=== PATIENT | female | born 1945 | race Caucasian/White ===

== ENCOUNTER 2022-09-02 12:51 | Inpatient (IN) | payer MEDICARE, BC ==
--- NOTE | 2022-09-02 13:34 | ED ---
SOB HPI - General Chief Complaint: Shortness of Breath Stated Complaint: Weakness Time Seen by Provider: 09/02/22 13:14 Source: patient, RN notes reviewed, old records reviewed Mode of arrival: ambulatory Limitations: no limitations - History of Present Illness Initial Comments: This is a pleasant well-appearing 77-year-old female that presents to the e mergency room with complaints of shortness of breath with exertion since August 06. Patient states was walking around at [place] and became very short of breath and diaphoretic lasting longer than 20 minutes. Did have some chest pain at that time. States that more frequently she has been shortness of breath whenever she tries to walk or do anything exertional. Has had 1 other episode of diaphoresis in the past month. States occasionally has some bilateral lower extremity swelling which is resolved at this time. No nausea vomiting. No fevers. Did see her primary care doctor and is scheduled to see a [employer]. She believes that her blood glucose levels are high which is causing her symptoms. She is not a diabetic. She does take thyroid medication for hypothyroidism and a baby aspirin a day. MD Complaint: shortness of breath -: month(s) (1) Severity scale (1-10): 0 Associated Symptoms: diaphoresis, other (weakness, short of breath with exertion, occasional leg swelling) Treatments Prior to Arrival: none - Related Data Home Medications Medication Instructions Recorded Confirmed Aspirin EC [Ecotrin Low Dose] 81 mg PO DAILY 09/02/22 09/02/22 Levothyroxine Sodium [Synthroid] 75 mcg PO HS 09/02/22 09/02/22 Multivitamins, Thera [Multivitamin 1 tab PO DAILY 09/02/22 09/02/22 (formulary)] Vitamin E (Dl,Tocopheryl Acet) 400 unit PO DAILY 09/02/22 09/02/22 [Vitamin E (400 Iu = 180 mg)] Allergies Allergy/AdvReac Type Severity Reaction Status Date / Time No Known Allergies Allergy Verified 09/02/22 14:20 Review of Systems ROS Statement: Those systems with pertinent positive or pertinent negative responses have been documented in the HPI. ROS Other: All systems not noted in ROS Statement are negative. Past Medical History Past Medical History: Thyroid Disorder History of Any Multi-Drug Resistant Organisms: None Reported Past Surgical History: No Surgical Hx Reported Past Psychological History: No Psychological Hx Reported Smoking Status: Never smoker Past Alcohol Use History: None Reported Past Drug Use History: None Reported General Exam Limitations: no limitations General appearance: alert, in no apparent distress Head exam: Present: atraumatic Eye exam: Present: normal appearance. Absent: scleral icterus, conjunctival injection, periorbital swelling, periorbital tenderness Neck exam: Present: full ROM. Absent: tenderness, meningismus Respiratory exam: Present: normal lung sounds bilaterally. Absent: respiratory distress, accessory muscle use Cardiovascular Exam: Present: regular rate GI/Abdominal exam: Present: soft. Absent: distended, tenderness, rigid Rectal exam: Present: normal rectal tone. Absent: bloody stool, mass, tendernes s Extremities exam: Present: full ROM, normal capillary refill. Absent: te nderness, pedal edema Back exam: Absent: tenderness Neurological exam: Present: alert, oriented X3 Psychiatric exam: Present: normal affect, normal mood Skin exam: Present: warm, dry, normal color. Absent: cyanosis, diaphoretic, petechiae, pallor Course Vital Signs 09/02/22 09/02/22 09/02/22 13:11 13:17 14:17 Temperature 98 F Pulse Rate 80 68 81 Respiratory 16 16 16 Rate Blood Pressure 146/76 136/78 158/81 O2 Sat by Pulse 99 98 98 Oximetry Medical Decision Making - Medical Decision Making Chest x-ray interpreted by me shows no evidence of focal consolidation. Trachea is midline. Cardiac silhouette within normal size. Radiologist interpretation no evidence for acute pulmonary disease. EKG shows sinus rhythm with a ventricular rate of 78, [place] interval 0.196, QRS 0.108, QTc 0.416, no old EKG to compare Hemoglobin 5.2 hematocrit 20.2. Electrolytes are unremarkable. Last hemoglobin 11/16/2020 at 12.9 Patient is hemodynamically stable. Rectal exam negative for gross blood, sent for occult and negative. Abdomen is soft and nontender. Patient denies any melena or hematochezia. Patient has never had a colonoscopy states that her father and sister both had colon cancer. Patient states that she does take an aspirin a day She will be admitted to the hospital with symptomatic anemia. Two units of packed RBCs ordered. Patient is agreeable to this plan of care. I did speak with Dr. Hernandez who is agreeable to admission,. consult to Dr. Slime gao. Case discussed with Dr. Wasserman Was pt. sent in by a medical professional or institution (, [facility], [employer], urgent care, hospital, or long-term...) When possible be specific @ -[No] Did you speak to anyone other than the patient for history (EMS, parent, family, police, friend...)? What history was obtained from this source @ -[No] Did you review nursing and triage notes (agree or disagree)? Why? @ -[I reviewed and agree with nursing and triage notes] Were old charts reviewed (outside hosp., previous admission, EMS record, old EKG, old radiological studies, urgent care reports/EKG's, long-term records)? Report findings @ - Differential Diagnosis (chest pain, altered mental status, abdominal pain women, abdominal pain men, vaginal bleeding, weakness, fever, dyspnea, syncope, headache, dizziness, GI bleed, back pain, seizure, CVA, palpatations, mental health, musculoskeletal)? @ Differential Dyspnea: Coronary syndrome, arrhythmia, tamponade, asthma, COPD, pulmonary embolism, pneumonia, pneumothorax, pulmonary effusion, anaphylaxis, diabetic ketoacidosis, flailed chest, pulmonary contusion, diaphragmatic rupture, anemia, neuromuscular, this is not meant to be an all-inclusive list. EKG interpreted by me (3pts min.). @ -[As above] X-rays interpreted by me (1pt min.). @ -Yes as above CT interpreted by me (1pt min.). @ -[None done] U/S interpreted by me (1pt. min.). @ -[None done] What testing was considered but not performed or refused? (CT, X-rays, U/S, labs)? Why? @ -[None] What meds were considered but not given or refused? Why? @ -[None] Did you discuss the management of the patient with other professionals (professionals i.e. , [facility], [employer], lab, RT, psych nurse, social services coordinator, statement clerks supervisor, teacher, community relations officer, caser in)? Give summary @ -[No] Was smoking cessation discussed for >3mins.? @ -[No] Was critical care preformed (if so, how long)? @ -[No] Were there social determinants of health that impacted care today? How? (Homelessness, low income, unemployed, alcoholism, drug addiction, transportation, low edu. Level, literacy, decrease access to med. care, [facility], rehab)? @ -[No] Was there de-escalation of care discussed even if they declined (Discuss DNR or withdrawal of care, Hospice)? DNR status @ -[No] What co-morbidities impacted this encounter? (DM, HTN, Smoking, COPD, CAD, Cancer, CVA, ARF, Chemo, Hep., AIDS, mental health diagnosis, sleep apnea, morbid obesity)? @ -[None] Was patient admitted / discharged? Hospital course, mention meds given and route, prescriptions, significant lab abnormalities, going to OR and other pertinent info. @ -Admitted Undiagnosed new problem with uncertain prognosis? @ -Symptomatic anemia requiring blood transfusion Drug Therapy requiring intensive monitoring for toxicity (Heparin, Nitro, Insulin, Cardizem)? @ -[No] Were any procedures done? @ -[No] Diagnosis/symptom? @ -Symptomatic anemia Acute, or Chronic, or Acute on Chronic? @ -Acute Uncomplicated (without systemic symptoms) or Complicated (systemic symptoms)? @ -Complicated Side effects of treatment? @ -[No] Exacerbation, Progression, or Severe Exacerbation? @ -[No] Poses a threat to life or bodily function? How? (Chest pain, [place], [place], pneumonia, PE, COPD, DKA, ARF, appy, cholecystitis, CVA, Diverticulitis, Homicidal, Suicidal, threat to staff... and all critical care pts) @ -yes, Symptomatic anemia requiring blood transfusion - Lab Data Result diagrams: 09/02/22 13:28 09/02/22 13:28 Lab Results 09/02/22 09/02/22 09/02/22 Range/Units 13:28 13:28 13:28 WBC 9.1 (3.8-10.6) k/uL RBC 3.37 L (3.80-5.40) m/uL Hgb 5.2 L* (11.4-16.0) gm/dL Hct 20.2 L (34.0-46.0) % MCV 60.0 L (80.0-100.0) fL MCH 15.4 L (25.0-35.0) pg MCHC 25.7 L (31.0-37.0) g/dL RDW 19.2 H (11.5-15.5) % Plt Count 605 H (150-450) k/uL MPV 8.5 Neutrophils % (Manual) 72 % Lymphocytes % (Manual) 21 % Monocytes % (Manual) 4 % Eosinophils % (Manual) 2 % Basophils % (Manual) 1 % Neutrophils # (Manual) 6.55 (1.3-7.7) k/uL Lymphocytes # (Manual) 1.91 (1.0-4.8) k/uL Monocytes # (Manual) 0.36 (0-1.0) k/uL Eosinophils # (Manual) 0.18 (0-0.7) k/uL Basophils # (Manual) 0.09 (0-0.2) k/uL Nucleated RBCs 0 (0-0) /100 WBC Manual Slide Review Performed Polychromasia Present Hypochromasia Marked Hypochromasia (manual) Present Poikilocytosis Moderate Poikilocytosis (manual Present Anisocytosis Slight Anisocytosis (manual) Present Microcytosis Marked Target Cells Present Ovalocytes Present Fragmented RBCs Present PT 10.1 (9.0-12.0) sec INR 0.9 (<1.2) APTT 22.0 (22.0-30.0) sec Sodium 134 L (137-145) mmol/L Potassium 4.7 (3.5-5.1) mmol/L Chloride 102 (98-107) mmol/L Carbon Dioxide 28 (22-30) mmol/L Anion Gap 4 mmol/L BUN 12 (7-17) mg/dL Creatinine 0.60 (0.52-1.04) mg/dL Est GFR (CKD-EPI)AfAm >90 (>60 ml/min/1.73 sqM) Est GFR (CKD-EPI)NonAf 89 (>60 ml/min/1.73 sqM) Glucose 86 (74-99) mg/dL Calcium 8.8 (8.4-10.2) mg/dL Magnesium 2.5 H (1.6-2.3) mg/dL Total Bilirubin 0.3 (0.2-1.3) mg/dL AST 39 H (14-36) U/L ALT 62 H (4-34) U/L Alkaline Phosphatase 111 (38-126) U/L Troponin I (0.000-0.034) ng/mL NT-Pro-B Natriuret Pep pg/mL Total Protein 6.3 (6.3-8.2) g/dL Albumin 3.6 (3.5-5.0) g/dL TSH 1.420 (0.465-4.680) mIU/L Stool Occult Blood (Negative) Blood Type Recheck Bld Type Recheck Status Spec Expiration Date 09/02/22 09/02/22 09/02/22 Range/Units 13:28 13:28 14:15 WBC (3.8-10.6) k/uL RBC (3.80-5.40) m/uL Hgb (11.4-16.0) gm/dL Hct (34.0-46.0) % MCV (80.0-100.0) fL MCH (25.0-35.0) pg MCHC (31.0-37.0) g/dL RDW (11.5-15.5) % Plt Count (150-450) k/uL MPV Neutrophils % (Manual) % Lymphocytes % (Manual) % Monocytes % (Manual) % Eosinophils % (Manual) % Basophils % (Manual) % Neutrophils # (Manual) (1.3-7.7) k/uL Lymphocytes # (Manual) (1.0-4.8) k/uL Monocytes # (Manual) (0-1.0) k/uL Eosinophils # (Manual) (0-0.7) k/uL Basophils # (Manual) (0-0.2) k/uL Nucleated RBCs (0-0) /100 WBC Manual Slide Review Polychromasia Hypochromasia Hypochromasia (manual) Poikilocytosis Poikilocytosis (manual Anisocytosis Anisocytosis (manual) Microcytosis Target Cells Ovalocytes Fragmented RBCs PT (9.0-12.0) sec INR (<1.2) APTT (22.0-30.0) sec Sodium (137-145) mmol/L Potassium (3.5-5.1) mmol/L Chloride (98-107) mmol/L Carbon Dioxide (22-30) mmol/L Anion Gap mmol/L BUN (7-17) mg/dL Creatinine (0.52-1.04) mg/dL Est GFR (CKD-EPI)AfAm (>60 ml/min/1.73 sqM) Est GFR (CKD-EPI)NonAf (>60 ml/min/1.73 sqM) Glucose (74-99) mg/dL Calcium (8.4-10.2) mg/dL Magnesium (1.6-2.3) mg/dL Total Bilirubin (0.2-1.3) mg/dL AST (14-36) U/L ALT (4-34) U/L Alkaline Phosphatase (38-126) U/L Troponin I <0.012 (0.000-0.034) ng/mL NT-Pro-B Natriuret Pep 132 pg/mL Total Protein (6.3-8.2) g/dL Albumin (3.5-5.0) g/dL TSH (0.465-4.680) mIU/L Stool Occult Blood Negative (Negative) Blood Type Recheck Bld Type Recheck Status Spec Expiration Date 09/02/22 Range/Units 14:18 WBC (3.8-10.6) k/uL RBC (3.80-5.40) m/uL Hgb (11.4-16.0) gm/dL Hct (34.0-46.0) % MCV (80.0-100.0) fL MCH (25.0-35.0) pg MCHC (31.0-37.0) g/dL RDW (11.5-15.5) % Plt Count (150-450) k/uL MPV Neutrophils % (Manual) % Lymphocytes % (Manual) % Monocytes % (Manual) % Eosinophils % (Manual) % Basophils % (Manual) % Neutrophils # (Manual) (1.3-7.7) k/uL Lymphocytes # (Manual) (1.0-4.8) k/uL Monocytes # (Manual) (0-1.0) k/uL Eosinophils # (Manual) (0-0.7) k/uL Basophils # (Manual) (0-0.2) k/uL Nucleated RBCs (0-0) /100 WBC Manual Slide Review Polychromasia Hypochromasia Hypochromasia (manual) Poikilocytosis Poikilocytosis (manual Anisocytosis Anisocytosis (manual) Microcytosis Target Cells Ovalocytes Fragmented RBCs PT (9.0-12.0) sec INR (<1.2) APTT (22.0-30.0) sec Sodium (137-145) mmol/L Potassium (3.5-5.1) mmol/L Chloride (98-107) mmol/L Carbon Dioxide (22-30) mmol/L Anion Gap mmol/L BUN (7-17) mg/dL Creatinine (0.52-1.04) mg/dL Est GFR (CKD-EPI)AfAm (>60 ml/min/1.73 sqM) Est GFR (CKD-EPI)NonAf (>60 ml/min/1.73 sqM) Glucose (74-99) mg/dL Calcium (8.4-10.2) mg/dL Magnesium (1.6-2.3) mg/dL Total Bilirubin (0.2-1.3) mg/dL AST (14-36) U/L ALT (4-34) U/L Alkaline Phosphatase (38-126) U/L Troponin I (0.000-0.034) ng/mL NT-Pro-B Natriuret Pep pg/mL Total Protein (6.3-8.2) g/dL Albumin (3.5-5.0) g/dL TSH (0.465-4.680) mIU/L Stool Occult Blood (Negative) Blood Type Recheck No Previous Record Bld Type Recheck Status CABO Indicated Spec Expiration Date 09/05/2022 - 2317 Critical Care Time Critical Care Time: Yes Total Critical Care Time: 32 Disposition Clinical Impression: Symptomatic anemia Disposition: ADMITTED IP TO THIS [facility] Decision Date: 09/02/22 Decision Time: 14:30
[2022-09-02 13:52] LABS: Anisocytosis Slight; HCT 20.2 % (34.0-46.0); Hypochromasia Marked; MCH 15.4 pg (25.0-35.0); MCHC 25.7 g/dL (31.0-37.0); Mean Platelet Volume 8.5; Microcytosis Marked; Platelet Count 605 k/uL (150-450); Poikilocytosis Moderate; RBC 3.37 m/uL (3.80-5.40); RDW 19.2 % (11.5-15.5); WBC 9.1 k/uL (3.8-10.6)
[2022-09-02 14:02] LABS: INR 0.9 (<1.2); Prothrombin Time 10.1 sec (9.0-12.0)
[2022-09-02 14:04] LABS: ALT 62 U/L (4-34); AST 39 U/L (14-36); African American GFR (CKD) >90 (>60 ml/min/1.73 sqM); Albumin 3.6 g/dL (3.5-5.0); Alkaline Phosphatase 111 U/L (38-126); Anion Gap 4 mmol/L; Blood Urea Nitrogen 12 mg/dL (7-17); Calcium 8.8 mg/dL (8.4-10.2); Carbon Dioxide 28 mmol/L (22-30); Chloride 102 mmol/L (98-107); Glucose 86 mg/dL (74-99); Magnesium 2.5 mg/dL (1.6-2.3); Non-African American GFR(CKD) 89 (>60 ml/min/1.73 sqM); Potassium 4.7 mmol/L (3.5-5.1); Sodium 134 mmol/L (137-145); Total Bilirubin 0.3 mg/dL (0.2-1.3); Total Protein 6.3 g/dL (6.3-8.2)
--- NOTE | 2022-09-02 14:14 | XR ---
EXAMINATION TYPE: XR chest 2V DATE OF EXAM: 09/02/2022 COMPARISON: NONE HISTORY: Shortness of breath TECHNIQUE: Frontal and lateral views of the chest are obtained. FINDINGS: Scattered senescent parenchymal changes noted. Hyperinflation compatible with COPD. No evidence for infiltrate. No evidence for atelectasis. There is a moderate fixed hiatal hernia note d. Heart size is stable. Mediastinal structures are stable and grossly unremarkable. No evidence for hilar prominence. Degenerative changes dorsal spine. IMPRESSION: 1. No evidence for acute pulmonary disease.
[2022-09-02] MEDS ORDERED: NALOXONE 0.4 MG/ML 1 ML VIAL IV PRN (15:06)
[2022-09-02 15:50] LABS: Anisocytosis (M) Present; Basophils # (M) 0.09 k/uL (0-0.2); Eosinophils # (M) 0.18 k/uL (0-0.7); Hypochromasia (M) Present; Lymphocytes # (M) 1.91 k/uL (1.0-4.8); Monocytes # (M) 0.36 k/uL (0-1.0); Neutrophils # (M) 6.55 k/uL (1.3-7.7); Neutrophils % (M) 72 %; Nucleated Red Blood Cells 0 /100 WBC (0-0); Poikilocytosis (M) Present; Polychromasia Present; Target Cells Present; Total Cells Counted 100
[2022-09-02 15:51] LABS: Ovalocytes Present; RBC Fragments Present
[2022-09-02] MEDS: SODIUM CHLORIDE 0.9% 1,000 ML IV SCH (16:11)
[2022-09-02] MEDS: PANTOPRAZOLE 40 MG/10 ML VIAL IV SCH (16:11)
[2022-09-02] MEDS: LEVOTHYROXINE 75 MCG TAB PO SCH (20:56)
--- NOTE | 2022-09-03 02:19 | P.HPIM ---
History of Present Illness H&P Date: 09/02/22 Chief Complaint: Shortness of breath Patient is a 77-year-old female with a known history of hypothyroidism presents to ER with complaints of shortness of breath and exertional dyspnea. Patient has been having symptoms since August 06. Patient states that she was at [facility] and was walking around but suddenly became short of breath and diaphoretic lasting longer than 30 minutes. Patient did have some chest tightness/discomfort at the time. No radiation of the pain. Patient states that recently she has been having more short of breath whenever she tries to walk and do any exertion. Patient was also noted to have bilateral lower extremity evaluation minimal at this time. No complaints of nausea or vomiting. No complaints of abdominal pain. Patient was seen by her primary care physician and is scheduled to see cardiology as an outpatient. On admission chest x-ray showed no evidence for acute pulmonary disease. EKG showed sinus rhythm with left anterior fascicular block. Laboratory data showed WBC 9.1 hemoglobin 5.2 and platelets 605 and MCV 60.0 Iron profile showed iron level 10 TIBC 501 and percentage saturation is 2.0 proBNP 132 and troponin x1 negative AST 39 ALT 62 and alk phos 111 Fecal occult blood was negative in the ER. Review of Systems Constitutional: Patient denies any fever or chills . no Generalized weakness. Abdomen: Patient denied any nausea or vomiting or abd. pain Cardiovascular: Patient denies any chest pain. Shortness of breath and exertional dyspnea. No orthopnea no PND. Mild leg swelling. Respiratory: patient denied any cough . no sputum production. Positive for shortness of breath Neurologic: Patient denied any numbness or tingling headache. Musculoskeletal: Patient denies any complaints of joint swelling or deformity. Skin: Negative Psychiatric: Negative Endocrine: No heat or cold intolerance. No recent weight gain. Genitourinary: No dysuria or hematuria. 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 Past Anesthesia/Blood Transfusion Reactions: No Reported Reaction Past Psychological History: No Psychological Hx Reported Smoking Status: Never smoker Past Alcohol Use History: None Reported Past Drug Use History: None Reported - Past Family History Mother Family Medical History: Coronary Artery Disease (CAD), Diabetes Mellitus, Renal Disease, Vascular Disorder Father Family Medical History: Cancer Additional Family Medical History / Comment(s): colon cancer Medications and Allergies Home Medications Medication Instructions Recorded Confirmed Type Aspirin EC [Ecotrin Low Dose] 81 mg PO DAILY 09/02/22 09/02/22 History Levothyroxine Sodium [Synthroid] 75 mcg PO HS 09/02/22 09/02/22 History Multivitamins, Thera [Multivitamin 1 tab PO DAILY 09/02/22 09/02/22 History (formulary)] Vitamin E (Dl,Tocopheryl Acet) 400 unit PO DAILY 09/02/22 09/02/22 History [Vitamin E (400 Iu = 180 mg)] Allergies Allergy/AdvReac Type Severity Reaction Status Date / Time No Known Allergies Allergy Verified 09/02/22 14:20 Physical Exam Vitals: Vital Signs Temp Pulse Pulse Resp BP BP Pulse Ox 09/02/22 18:32 98.1 F 85 16 148/67 98 09/02/22 18:12 97.9 F 83 16 142/65 97 09/02/22 18:02 97.4 F L 83 17 137/65 96 09/02/22 16:52 96.4 F L 82 16 160/69 09/02/22 16:18 86 16 168/75 98 09/02/22 16:00 80 20 168/78 97 09/02/22 15:50 80 150/72 98 09/02/22 15:40 79 150/72 99 09/02/22 15:30 76 139/76 96 09/02/22 15:20 80 139/76 98 09/02/22 15:10 79 139/76 97 09/02/22 15:00 78 20 150/73 98 09/02/22 14:50 80 150/73 96 09/02/22 14:40 80 150/73 97 09/02/22 14:30 84 158/81 98 09/02/22 14:20 81 146/75 97 09/02/22 14:17 81 16 158/81 98 09/02/22 14:10 78 146/75 99 09/02/22 14:00 146/75 09/02/22 13:50 79 146/75 96 09/02/22 13:40 78 146/75 98 09/02/22 13:30 81 146/75 98 09/02/22 13:20 80 146/75 97 09/02/22 13:17 68 16 136/78 98 09/02/22 13:14 146/75 97 09/02/22 13:11 98 F 80 16 146/76 99 Intake and Output 09/02/22 09/02/22 09/02/22 06:59 14:59 22:59 Intake Total 0 Balance 0 Intake: Blood Product 0 Unit 0 Other: Weight 68.039 kg 68.039 kg PHYSICAL EXAMINATION: Patient is lying in the bed comfortably, no acute distress, awake alert and oriented.. HEENT: Normocephalic. Neck is supple. Pupils reactive. Nostrils clear. Oral cavity is moist. Neck reveals no JVD, carotid bruits, or thyromegaly. CHEST EXAMINATION: Trachea is central. Symmetrical expansion. Lung carver clear to auscultation and percussion. CARDIAC: Normal S1, S2 with no gallops. No murmurs ABDOMEN: Soft. Bowel sounds present. Nontender. No organomegaly. No abdominal bruits. Extremities: reveal no edema. No clubbing or cyanosis Neurologically awake, alert, oriented x3 with well-coordinated movements. No focal deficits noted Skin: No rash or skin lesions. Psychiatric: Coperative. Nonsuicidal, Musculoskeletal: No joint swelling or deformity. Normal range of motion. Results CBC & Chem 7: 09/03/22 10:47 09/03/22 10:47 Labs: Abnormal Lab Results - Last 24 Hours (Table) 09/02/22 09/02/22 09/02/22 Range/Units 13:28 13:28 14:18 RBC 3.37 L (3.80-5.40) m/uL Hgb 5.2 L* (11.4-16.0) gm/dL Hct 20.2 L (34.0-46.0) % MCV 60.0 L (80.0-100.0) fL MCH 15.4 L (25.0-35.0) pg MCHC 25.7 L (31.0-37.0) g/dL RDW 19.2 H (11.5-15.5) % Plt Count 605 H (150-450) k/uL Sodium 134 L (137-145) mmol/L Magnesium 2.5 H (1.6-2.3) mg/dL AST 39 H (14-36) U/L ALT 62 H (4-34) U/L Crossmatch See Detail Thrombosis Risk Factor Assmnt - DVT/VTE Prophylaxis DVT/VTE Prophylaxis: Mechanical Prophylaxis ordered - Choose All That Apply Any of the Below Risk Factors Present?: Yes Each Factor Represents 1 point: Obesity (BMI >25) Each Risk Factor Represents 3 Points: Age 75 years or older Thrombosis Risk Factor Assessment Total Risk Factor Score: 4 Thrombosis Risk Factor Assessment Level: Moderate Risk Assessment and Plan Assessment: Shortness of breath and exertional dyspnea Symptomatic anemia with hemoglobin level 5.2 on admission Microcytic iron deficiency anemia Hypothyroidism DVT prophylaxis with SCDs Plan: Patient will be continued on IV hydration with normal saline and continue with IV Protonix 40 mg daily. Transfusion with 1 unit of PRBC was ordered. Follow-up B12 folate level and iron profile. General surgery was consulted for possible EGD. Continue to monitor H&H and follow-up closely. Patient denies any complaints of chest pain at this time. Time with Patient: Greater than 30
[2022-09-03] MEDS: SODIUM CHLORIDE 0.9% 1,000 ML IV SCH ×2 (04:17→20:10)
[2022-09-03] MEDS: PANTOPRAZOLE 40 MG/10 ML VIAL IV SCH (08:01)
[2022-09-03] MEDS ORDERED: LIDOCAINE 2% INJ 20 MG/ML (2 ML VIAL) ONE (10:52)
[2022-09-03] MEDS ORDERED: IV FLUID CONTINUATION 1,000 ML IV ONE (10:52)
[2022-09-03] MEDS ORDERED: PROPOFOL 10 MG/ML 20 ML VIAL IV ONE (10:52)
--- NOTE | 2022-09-03 10:59 | P.GSCN ---
History of Present Illness Consult date: 09/03/22 History of present illness: CHIEF COMPLAINT: Shortness of breath HISTORY OF PRESENT ILLNESS: This is a 77-year-old female who presented to the emergency room with shortness of breath since August 06. She also complains of being fatigued and having dizziness. She's found to have a hemoglobin of 5.2 on admission. Her iron levels low at 10. She denies any blood in her stools or black stools. She does have a family history of colon cancer and in both her father and sister. Patient has never had a colonoscopy. Patient was never had EGD. She denies any nausea or vomiting. She does report some epigastric discomfort. She did receive 2 units of blood for the hemoglobin of 5.2. She denies being on any blood thinners. PAST MEDICAL HISTORY: See below PAST SURGICAL HISTORY: See below MEDICATIONS: See below ALLERGIES: See below SOCIAL HISTORY: No illicit drug use. REVIEW OF SYSTEMS: CONSTITUTIONAL: Denies fever or chills. HEENT: Denies blurred vision, vision changes, or eye pain. Denies hemoptysis CARDIOVASCULAR: Denies chest pain or pressure. RESPIRATORY: No shortness of breath. GASTROINTESTINAL: See HPI for pertinent findings HEMATOLOGIC: Denies bleeding disorders. GENITOURINARY: Denies any blood in urine or increased urinary frequency. SKIN: Denies pruitis. Denies rash. PHYSICAL EXAM: VITAL SIGNS: Reviewed GENERAL: Well-developed in no acute distress. HEENT: No sclera icterus. Extraocular movements grossly intact. Moist buccal mucosa. Head is atraumatic, normocephalic. No nasal drainage. ABDOMEN: Soft. Nondistended. Mild epigastric discomfort with palpation NEUROLOGIC: Alert and oriented. Cranial nerves II through XII grossly intact. LABORATORY DATA: WBC is 9.1 hgb 5.2 platelets 605 INR 0.9 Sodium 134 potassium 4.7 creatinine 0.60 Total iron 10 Stool for occult blood negative Labs from today pending IMAGING: ASSESSMENT: 1. Symptomatic anemia with evidence of iron deficiency 2. Family history of colon cancer PLAN: -Patient scheduled for EGD today with Dr. Palencia -Continue to monitor hemoglobin -Continue PPI -Continue supportive care Physician [employer] note has been reviewed by physician. Signing provider agrees with the documented findings, assessment, and plan of care. 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 Past Anesthesia/Blood Transfusion Reactions: No Reported Reaction Past Psychological History: No Psychological Hx Reported Smoking Status: Never smoker Past Alcohol Use History: None Reported Past Drug Use History: None Reported - Past Family History Mother Family Medical History: Coronary Artery Disease (CAD), Diabetes Mellitus, Renal Disease, Vascular Disorder Father Family Medical History: Cancer Additional Family Medical History / Comment(s): colon cancer Medications and Allergies Home Medications Medication Instructions Recorded Confirmed Type Aspirin EC [Ecotrin Low Dose] 81 mg PO DAILY 09/02/22 09/02/22 History Levothyroxine Sodium [Synthroid] 75 mcg PO HS 09/02/22 09/02/22 History Multivitamins, Thera [Multivitamin 1 tab PO DAILY 09/02/22 09/02/22 History (formulary)] Vitamin E (Dl,Tocopheryl Acet) 400 unit PO DAILY 09/02/22 09/02/22 History [Vitamin E (400 Iu = 180 mg)] Allergies Allergy/AdvReac Type Severity Reaction Status Date / Time No Known Allergies Allergy Verified 09/02/22 14:20 Surgical - Exam Vital Signs Temp Pulse Resp BP Pulse Ox 98 F 80 16 146/76 99 09/02/22 13:11 09/02/22 13:11 09/02/22 13:11 09/02/22 13:11 09/02/22 13:11 Results - Labs 09/02/22 13:28 09/02/22 13:28 Abnormal Lab Results - Last 24 Hours (Table) 09/02/22 09/02/22 09/02/22 Range/Units 13:28 13:28 13:28 RBC 3.37 L (3.80-5.40) m/uL Hgb 5.2 L* (11.4-16.0) gm/dL Hct 20.2 L (34.0-46.0) % MCV 60.0 L (80.0-100.0) fL MCH 15.4 L (25.0-35.0) pg MCHC 25.7 L (31.0-37.0) g/dL RDW 19.2 H (11.5-15.5) % Plt Count 605 H (150-450) k/uL Sodium 134 L (137-145) mmol/L Magnesium 2.5 H (1.6-2.3) mg/dL Iron 10 L (50-170) ug/dL TIBC 501 H (228-460) ug/dL % Saturation 2.00 L (12.00-45.00) Transferrin 358.0 H (204.0-354.0) mg/dL AST 39 H (14-36) U/L ALT 62 H (4-34) U/L Crossmatch 09/02/22 Range/Units 14:18 RBC (3.80-5.40) m/uL Hgb (11.4-16.0) gm/dL Hct (34.0-46.0) % MCV (80.0-100.0) fL MCH (25.0-35.0) pg MCHC (31.0-37.0) g/dL RDW (11.5-15.5) % Plt Count (150-450) k/uL Sodium (137-145) mmol/L Magnesium (1.6-2.3) mg/dL Iron (50-170) ug/dL TIBC (228-460) ug/dL % Saturation (12.00-45.00) Transferrin (204.0-354.0) mg/dL AST (14-36) U/L ALT (4-34) U/L Crossmatch See Detail Diabetes panel 09/02/22 Range/Units 13:28 Sodium 134 L (137-145) mmol/L Potassium 4.7 (3.5-5.1) mmol/L Chloride 102 (98-107) mmol/L Carbon Dioxide 28 (22-30) mmol/L BUN 12 (7-17) mg/dL Creatinine 0.60 (0.52-1.04) mg/dL Glucose 86 (74-99) mg/dL Calcium 8.8 (8.4-10.2) mg/dL AST 39 H (14-36) U/L ALT 62 H (4-34) U/L Alkaline Phosphatase 111 (38-126) U/L Total Protein 6.3 (6.3-8.2) g/dL Albumin 3.6 (3.5-5.0) g/dL Thyroid panel 09/02/22 Range/Units 13:28 TSH 1.420 (0.465-4.680) mIU/L Calcium panel 09/02/22 Range/Units 13:28 Calcium 8.8 (8.4-10.2) mg/dL Albumin 3.6 (3.5-5.0) g/dL Pituitary panel 09/02/22 Range/Units 13:28 Sodium 134 L (137-145) mmol/L Potassium 4.7 (3.5-5.1) mmol/L Chloride 102 (98-107) mmol/L Carbon Dioxide 28 (22-30) mmol/L BUN 12 (7-17) mg/dL Creatinine 0.60 (0.52-1.04) mg/dL Glucose 86 (74-99) mg/dL Calcium 8.8 (8.4-10.2) mg/dL TSH 1.420 (0.465-4.680) mIU/L Adrenal panel 09/02/22 Range/Units 13:28 Sodium 134 L (137-145) mmol/L Potassium 4.7 (3.5-5.1) mmol/L Chloride 102 (98-107) mmol/L Carbon Dioxide 28 (22-30) mmol/L BUN 12 (7-17) mg/dL Creatinine 0.60 (0.52-1.04) mg/dL Glucose 86 (74-99) mg/dL Calcium 8.8 (8.4-10.2) mg/dL Total Bilirubin 0.3 (0.2-1.3) mg/dL AST 39 H (14-36) U/L ALT 62 H (4-34) U/L Alkaline Phosphatase 111 (38-126) U/L Total Protein 6.3 (6.3-8.2) g/dL Albumin 3.6 (3.5-5.0) g/dL
--- NOTE | 2022-09-03 11:04 | P.OP ---
Date of Procedure: 09/03/22 Preoperative Diagnosis: Anemia GI bleed Postoperative Diagnosis: Antral gastritis Large paraesophageal hiatal hernia with one third of stomach and chest Antral gastritis Procedure(s) Performed: EGD Anesthesia: MAC Surgeon: Mika Palencia Pathology: other (Antrum, esophagus) Condition: stable Disposition: PACU Description of Procedure: The patient's placed on the endoscopy table in the lateral position. She received IV sedation. The gastroscope placed oropharynx passed in the esophagus into the stomach. Scope was then placed through the pylorus. The first and second portion of the duodenum appeared normal. Scope was then brought back the antrum this. Mildly inflamed. A biopsies performed. The scope was then retroflexed and the remainder the stomach was visualized. The patient had a large paraesophageal hernia. Approximately one third of the stomach was in the intrathoracic position. The GE junction was at 37 cm. The distal esophagus. Minimal inflamed and a biopsies performed. Proximal esophagus appeared normal. Scope withdrawn for patient. There was no evidence of active GI bleed. Presumed patient may have had microscopic bleeding related to her paraesophageal hernia.
[2022-09-03 11:42] LABS: Anisocytosis Moderate; HCT 26.8 % (34.0-46.0); HGB 8.1 gm/dL (11.4-16.0); Hypochromasia Marked; MCH 20.1 pg (25.0-35.0); MCHC 30.1 g/dL (31.0-37.0); Mean Platelet Volume 8.1; Microcytosis Marked; Platelet Count 551 k/uL (150-450); Poikilocytosis Marked; RBC 4.01 m/uL (3.80-5.40); RDW 22.7 % (11.5-15.5)
[2022-09-03 11:59] LABS: African American GFR (CKD) >90 (>60 ml/min/1.73 sqM); Anion Gap 5 mmol/L; Blood Urea Nitrogen 10 mg/dL (7-17); Calcium 8.9 mg/dL (8.4-10.2); Carbon Dioxide 27 mmol/L (22-30); Chloride 105 mmol/L (98-107); Glucose 85 mg/dL (74-99); Non-African American GFR(CKD) 80 (>60 ml/min/1.73 sqM); Potassium 4.5 mmol/L (3.5-5.1); Sodium 137 mmol/L (137-145)
[2022-09-03 12:00] LABS: MCV 66.9 fL (80.0-100.0)
[2022-09-03 13:59] LABS: Lymphocytes # (M) 1.28 k/uL (1.0-4.8); Monocytes # (M) 0.64 k/uL (0-1.0); Neutrophils # (M) 5.18 k/uL (1.3-7.7); Neutrophils % (M) 73 %; Nucleated Red Blood Cells 2 /100 WBC (0-0); Total Cells Counted 100; WBC 7.1 k/uL (3.8-10.6)
[2022-09-03] MEDS: LEVOTHYROXINE 75 MCG TAB PO SCH (20:12)
[2022-09-03 23:25] VITALS: RESP 18
[2022-09-04] MEDS: SODIUM CHLORIDE 0.9% 1,000 ML IV SCH (05:18)
[2022-09-04] MEDS ORDERED: SODIUM FERRIC GLUCONAT-SUCROSE 125 MG in SODIUM CHLORIDE 0.9% 100 ML IVPB SCH (09:00)
[2022-09-04] MEDS: PANTOPRAZOLE 40 MG/10 ML VIAL IV SCH (09:21)
[2022-09-04 09:40] LABS: Chloride 106 mmol/L (98-107)
[2022-09-04 09:41] LABS: AST 106 U/L (14-36); African American GFR (CKD) >90 (>60 ml/min/1.73 sqM); Anion Gap 7 mmol/L; Blood Urea Nitrogen 10 mg/dL (7-17); Calcium 9.2 mg/dL (8.4-10.2); Carbon Dioxide 23 mmol/L (22-30); Glucose 139 mg/dL (74-99); Non-African American GFR(CKD) 86 (>60 ml/min/1.73 sqM); Potassium 5.2 mmol/L (3.5-5.1); Sodium 136 mmol/L (137-145); Total Bilirubin 1.1 mg/dL (0.2-1.3); Total Protein 6.7 g/dL (6.3-8.2)
[2022-09-04 09:42] LABS: ALT 44 U/L (4-34); Alkaline Phosphatase 136 U/L (38-126)
[2022-09-04 10:02] LABS: Anisocytosis Moderate; HCT 29.6 % (34.0-46.0); HGB 8.4 gm/dL (11.4-16.0); Hypochromasia Marked; MCH 19.5 pg (25.0-35.0); MCHC 28.5 g/dL (31.0-37.0); MCV 68.5 fL (80.0-100.0); Mean Platelet Volume 8.4; Microcytosis Marked; Platelet Count 593 k/uL (150-450); Poikilocytosis Marked; RBC 4.32 m/uL (3.80-5.40); RDW 23.3 % (11.5-15.5); WBC 8.1 k/uL (3.8-10.6)
[2022-09-04 11:27] LABS: Eosinophils # (M) 0.16 k/uL (0-0.7); Lymphocytes # (M) 0.65 k/uL (1.0-4.8); Monocytes # (M) 0.57 k/uL (0-1.0); Neutrophils # (M) 6.72 k/uL (1.3-7.7); Neutrophils % (M) 83 %; Nucleated Red Blood Cells 0 /100 WBC (0-0); Total Cells Counted 100
--- NOTE | 2022-09-04 12:07 | CT ---
EXAMINATION TYPE: CT ChestAbdPelvis w con DATE OF EXAM: 09/04/2022 COMPARISON: None HISTORY: Hiatal hernia. CT DLP: 775.9 mGycm CONTRAST: CT scan of the chest, abdomen and pelvis is performed without Oral Contrast and with IV Contrast, pat ient injected with 100ml mL of Isovue 300. CT Chest: LUNGS: The lungs are clear and free of infiltrate or atelectasis. No pulmonary nodule or mass is det ected. No pleural effusion or CT evidence of interstitial lung disease. MEDIASTINUM: Thoracic aorta is of normal caliber. The heart is not enlarged. No evidence for media stinal mass or adenopathy. HILAR STRUCTURES: No evidence for mass. No hilar adenopathy is appreciated. OTHER: No significant abnormality. CONTRAST CT ABDOMEN AND PELVIS FINDINGS: LIVER/GB: The gallbladder is contracted. There is mild hepatic steatosis noted. No space occupying he patic lesion. Biliary tree is of normal caliber. PANCREAS: No inflammation. No distinct mass. SPLEEN: No splenic enlargement. No lesion seen. ADRENALS: No nodule. No thickening. KIDNEYS/BLADDER: No hydronephrosis. No nephrolithiasis. No distinct renal mass. BOWEL: Normal appendix. Normal bowel caliber. No inflammation. Two thirds of the stomach is intrath oracic in location with paraesophageal hiatal hernia noted. GENITAL ORGANS: No gross abnormality. LYMPH NODES: No greater than 1cm abdominal or pelvic lymph nodes are appreciated. AORTA: No significant abnormality. OSSEOUS STRUCTURES: No significant abnormality is seen. OTHER: No significant additional abnormality is seen. IMPRESSION: 1. Two thirds of the stomach is intrathoracic in location with paraesophageal hiatal hernia noted.
[2022-09-04 12:18] VITALS: PULSE 82
--- NOTE | 2022-09-04 14:24 | P.PN ---
Subjective Progress Note Date: 09/04/22 CHIEF COMPLAINT: Shortness of breath HISTORY OF PRESENT ILLNESS: Patient presented with shortness of breath was found to have a hemoglobin of 5.2 on admission. She underwent EGD which did show a large hiatal hernia with one third of stomach and chest and antral gastritis. Patient may have had microscopic bleeding related to the paraesophageal hernia. Patient denies any abdominal pain. Denies any nausea or vomiting. She is tolerating diet. Hemoglobin is up from 8.1-8.4. Computed tomography scan chest abdomen and pelvis ordered for further evaluation of the hiatal hernia and bowel since patient has family history of colon cancer. Results showed Two thirds of the stomach is intrathoracic location of the paraesophageal hiatal hernia. No abnormality such as masses reported in the bowel. PHYSICAL EXAM: VITAL SIGNS: Reviewed. GENERAL: Well-developed in no acute distress. HEENT: No sclera icterus. Extraocular movements grossly intact. Moist buccal mucosa. Head is atraumatic, normocephalic. ABDOMEN: Soft. Nondistended. Nontender. NEUROLOGIC: Alert and oriented. Cranial nerves II through XII grossly intact. ASSESSMENT: 1. Symptomatic Anemia with evidence of a large paraesophageal hiatal hernia 2. Family history of colon cancer PLAN: -Recommend outpatient colonoscopy on Thursday with Dr. ortiz -Continue PPI at discharge -Patient can be discharged from surgical standpoint when medically cleared Physician Briar [employer] Sorter note has been reviewed by physician. Signing provider agrees with the documented findings, assessment, and plan of care. CHIEF COMPLAINT: Anemia HISTORY OF PRESENT ILLNESS: The patient is a 77-year-old female with anemia. No abdominal pain. No prior colonoscopy. She reports intermittent shortness of breath. ROS: No reports of nausea and vomiting. No bowel movements. No fevers or chills. No new chest pain. No productive sputum PHYSICAL EXAM: VITAL SIGNS: Reviewed CONSTITUTIONAL: Well developed and in no acute distress. EYES: Conjuctivae without sclera icterus. Extraocular movements grossly intact. HEAD, EARS, NOSE, THROAT: Moist buccal mucosa. Head is atraumatic, normocephalic. Hears conversational speech. No nasal drainage. RESPIRATORY: Non-labored respirations and equal bilateral excursions. CARDIOVASCULAR: Palpable 2+ radial pulses. ABDOMEN: No peritonitis. MUSCULOSKELETAL: No gross deformity of the lower extremities noted. No clubbing. No cyanosis. SKIN: Good skin turgor. Well perfused. NEUROLOGIC: Cranial nerves II through XII grossly intact. No focal or lateralizing signs. PSYCH: Appropriate affect. Alert and oriented to person, place and time. CLINICAL LABS: Reviewed. Anemia, hemoglobin of 8.1-8.4 ASSESSMENT: 1. Anemia 2. Paraesophageal hiatal hernia PLAN: 1. Agree with anemia workup with colonoscopy 2. Recommend CT chest abdomen and pelvis for further assessment of paraesophageal hernia and anemia ADDENDUM: CT chest abdomen and pelvis reviewed independently demonstrates intrathoracic paraesophageal hiatal hernia. No intra-abdominal masses for malignancy. This is my independent interpretation Objective - Vital Signs Vital signs: Vital Signs Temp 98.3 F 09/04/22 07:43 Pulse 84 09/04/22 08:00 Resp 18 09/04/22 08:00 BP 117/69 09/04/22 07:43 Pulse Ox 98 09/04/22 07:43 FiO2 Intake & Output 09/03/22 09/04/22 09/04/22 18:59 06:59 18:59 Intake Total 770 120 Output Total 1 Balance 769 120 Intake: IV 50 Oral 720 120 Output: Urine 1 Other: Voiding Method Toilet Toilet Toilet # Voids 2 - Labs CBC & Chem 7: 09/04/22 09:07 09/04/22 09:07 Labs: Abnormal Lab Results - Last 24 Hours (Table) 09/03/22 09/04/22 09/04/22 Range/Units 10:47 09:07 09:07 Hgb 8.1 L D 8.4 L (11.4-16.0) gm/dL Hct 26.8 L 29.6 L (34.0-46.0) % MCV 66.9 L D 68.5 L (80.0-100.0) fL MCH 20.1 L 19.5 L (25.0-35.0) pg MCHC 30.1 L 28.5 L (31.0-37.0) g/dL RDW 22.7 H 23.3 H (11.5-15.5) % Plt Count 551 H 593 H (150-450) k/uL Nucleated RBCs 2 H (0-0) /100 WBC Sodium 136 L (137-145) mmol/L Potassium 5.2 H (3.5-5.1) mmol/L Glucose 139 H (74-99) mg/dL AST 106 H (14-36) U/L ALT 44 H (4-34) U/L Alkaline Phosphatase 136 H (38-126) U/L
[2022-09-04 15:44] VITALS: BP 150/79; TEMP 97.6
[2022-09-06 08:25] LABS: HGB 5.2 gm/dL (11.4-16.0)
== END 2022-09-04 16:04 | disposition home or self-care (01) | DRG 392 ==
LOC: EC 12:51 → 3SCARD 15:10
PROVIDERS: ADMIT Internal Medicine; ATTEND Internal Medicine
PROC: 0DB78ZX Excision of Stomach, Pylorus, Via Natural or Artificial Opening Endoscopic, Diagnostic (ICD-10-PCS; principal; 2022-09-03 07:30)
PROC: 0DB58ZX Excision of Esophagus, Via Natural or Artificial Opening Endoscopic, Diagnostic (ICD-10-PCS; principal; 2022-09-03 07:30)
DX: K44.9 Diaphragmatic hernia without obstruction or gangrene (principal); K29.70 Gastritis, unspecified, without bleeding; D50.9 Iron deficiency anemia, unspecified; E03.9 Hypothyroidism, unspecified; I44.4 Left anterior fascicular block; Z79.82 Long term (current) use of aspirin; Z79.890 Hormone replacement therapy; Z79.899 Other long term (current) drug therapy; Z80.0 Family history of malignant neoplasm of digestive organs; Z82.49 Family history of ischemic heart disease and other diseases of the circulatory system; Z89.022 Acquired absence of left finger(s)
CPT/HCPCS: 36415; 36430; 43239; 71046; 71260; 74177; 80048; 80053; 82272; 82607; 82747; 83540; 83550; 83735; 83880; 84443; 84484; 85025; 85610; 85730; 86850; 86900; 86901; 86920; 88305; 93005; 94760; 96374; 99291

== ENCOUNTER 2022-09-08 13:37 | Day surgery (SDC) | payer MEDICARE, BC ==
[~2022-09-08 13:37] MED LIST: LACTATED RINGERS 1,000 ML IV SCH
[2022-09-08 13:56] VITALS: TEMP 98.2
[2022-09-08 14:08] LABS: Glucose,Whole Blood 87 mg/dL (70-110)
[2022-09-08] MEDS ORDERED: PROPOFOL 10 MG/ML 20 ML VIAL IV ONE (14:40)
--- NOTE | 2022-09-08 14:46 | P.GSHP ---
History of Present Illness H&P Date: 09/08/22 Chief Complaint: Anemia, GI bleed This a 77-year-old female with history of anemia and GI bleed. Patient recent EGD which shows a large paraesophageal hernia. Patient resents today for colonoscopy. Past Medical History Past Medical History: Thyroid Disorder Additional Past Medical History / Comment(s): recent SOB,found large hiatal hernia and anemia in hospital. has previous scheduled appt with Dr Ryan Ramirez this month. ( just discharged from hospital 09/04/22) general aches and pains. had pneumonia as a child 14 times. pt denies any other known issues. pt states she does not take meds unless really needed. 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 Past Anesthesia/Blood Transfusion Reactions: No Reported Reaction Smoking Status: Never smoker - Past Family History Mother Family Medical History: Coronary Artery Disease (CAD), Diabetes Mellitus, Renal Disease, Vascular Disorder Father Family Medical History: Cancer Additional Family Medical History / Comment(s): colon cancer Sister(s) Family Medical History: Cancer Additional Family Medical History / Comment(s): colon cancer Medications and Allergies Home Medications Medication Instructions Recorded Confirmed Type Aspirin EC [Ecotrin Low Dose] 81 mg PO DAILY 09/02/22 09/08/22 History Levothyroxine Sodium [Synthroid] 75 mcg PO HS 09/02/22 09/08/22 History Multivitamins, Thera [Multivitamin 1 tab PO DAILY 09/02/22 09/08/22 History (formulary)] Ferrous Sulfate [Feosol] 325 mg PO DAILY #30 tab 09/04/22 09/08/22 Rx Pantoprazole [Protonix] 40 mg PO AC-BRKFST #30 tab 09/04/22 09/08/22 Rx Peg 3350 (236 gm/Btl) + Lytes 4,000 ml PO DIRECTED #1 each 09/04/22 09/08/22 Rx [Golytely Lavage] Cholecalciferol [Vitamin D3 (125 125 mcg PO DAILY 09/05/22 09/08/22 History Mcg = 5000 Iu)] Allergies Allergy/AdvReac Type Severity Reaction Status Date / Time milk AdvReac Nausea & Verified 09/08/22 13:51 Vomiting Surgical - Exam Vital Signs Temp Pulse Resp BP Pulse Ox 98.2 F 86 14 188/86 99 09/08/22 13:54 09/08/22 13:54 09/08/22 13:54 09/08/22 13:54 09/08/22 13:54 - General well developed, well nourished, no distress - Eyes PERRL - ENT normal pinna - Neck no masses - Respiratory normal expansion - Cardiovascular Rhythm: regular - Abdomen Abdomen: soft, non tender Assessment and Plan Assessment: Anemia, GI bleed. We'll perform colonoscopy.
[2022-09-08] MEDS ORDERED: IV FLUID CONTINUATION 1,000 ML IV ONE (14:56)
--- NOTE | 2022-09-08 14:58 | P.OP ---
Date of Procedure: 09/08/22 Preoperative Diagnosis: Anemia GI bleed Postoperative Diagnosis: Diverticulosis Procedure(s) Performed: Colonoscopy Anesthesia: MAC Surgeon: Mika Palencia Pathology: none sent Condition: stable Disposition: PACU Description of Procedure: The patient's placed on the endoscopy table in the lateral position. She received IV sedation. Digital rectal exam was performed. This revealed no abnormalities. The flexible colonoscope was then placed patient anus and passed throughout the entire colon. The ileocecal valve was visualized. The cecum, ascending and transverse. In the descending; there is mild diverticular changes. The scope summer back the rectum and this appeared normal. Scope withdrawn for patient. There is no evidence of any GI bleed. Presumed patient had anemia and GI bleed related to her paraesophageal hiatal hernia.
[2022-09-08 15:17] VITALS: BP 128/66; PULSE 73; RESP 18
== END 2022-09-08 15:34 | disposition home or self-care (01) ==
LOC: ORWHC2ENDO 13:37
PROVIDERS: ATTEND Surgery
DX: K92.2 Gastrointestinal hemorrhage, unspecified (principal); D64.9 Anemia, unspecified; K44.9 Diaphragmatic hernia without obstruction or gangrene; I25.10 Atherosclerotic heart disease of native coronary artery without angina pectoris; Z82.49 Family history of ischemic heart disease and other diseases of the circulatory system; Z83.3 Family history of diabetes mellitus; Z80.0 Family history of malignant neoplasm of digestive organs; Z79.82 Long term (current) use of aspirin; Z79.899 Other long term (current) drug therapy
CPT/HCPCS: 45378; J2704